=== PATIENT | female | born 1995 | race Two or more races ===

== ENCOUNTER → 2025-01-15 | Outpatient (CLI) | payer BC, SELFPAY ==
--- NOTE | 2025-01-15 08:32 | XR_ITS ---
Examination: Breast ultrasound, unilateral, right complete Date and time of exam: January 15, 2025, 0854 hours INDICATIONS: Palpable lump right breast 6 o'clock position noticed beginning several months ago, no family history of breast cancer Technique: Real-time macario scale ultrasonographic imaging performed right breast including all 4 quadrants as well as nipple retroareolar and axillary region. Findings: 12:00 nodule lobular margins 4 x 5 mm 6:00 nodule micro lobular margins 14 x 6 x 17 mm IMPRESSION: BI-RADS Category 4: Suspicious for malignancy Suspicious mass 6 o'clock position right breast, biopsy is needed to exclude breast carcinoma, this mass is amenable to ultrasound-guided breast biopsy for diagnosis
== END | disposition home or self-care (01) ==
LOC: CDIM 08:24
PROVIDERS: PCP Nurse Practitioner; Referring Provider Physician Assistant Medical; Visit Provider Physician Assistant Medical
DX: N63.15 Unspecified lump in the right breast, overlapping quadrants (principal)
CPT/HCPCS: 76641